=== PATIENT | male | born 1960 ===

== ENCOUNTER 2024-03-22 12:23 | Outpatient (CLI) | payer BC, SELFPAY ==
--- NOTE | ~2024-03-22 | XR_ITS ---
XR knee LT 3V 03/22/2024 12:43 Indication: Left knee pain Procedure: 3 views left knee Comparison: No prior studies for comparison. Findings: There is anatomic alignment. No significant joint space narrowing. There is mild patellofem oral compartment osteoarthritis. No joint effusion. No fracture or traumatic malalignment. Impression: 1: Mild patellofemoral compartment osteoarthritis. Reviewed, dictated and finalized at location B. Impression: 1: Mild patellofemoral compartment osteoarthritis.
== END 2024-03-22 12:24 | disposition home or self-care (01) ==
PROVIDERS: PCP Family Medicine; Visit Provider Family Medicine
DX: M17.12 Unilateral primary osteoarthritis, left knee (principal)
CPT/HCPCS: 73562